=== PATIENT | male | born 1975 | race Caucasian/White ===

== ENCOUNTER 2018-04-21 21:34 | Emergency (ER) | payer OTHER ==
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
[2018-04-21 21:50] VITALS: BP 147/88
[2018-04-21] MEDS ORDERED: IBUPROFEN 100 MG/5 ML ORAL.SUSP. PO ONE (22:15)
[2018-04-21] MEDS ORDERED: IBUPROFEN 400 MG TABLET. PO ONE (22:30)
[2018-04-21] MEDS ORDERED: HYDR-1179 PO (22:47)
--- NOTE | 2018-04-22 08:03 | RAD ---
EXAM: Right elbow, 2 views. HISTORY: Pain and swelling. COMPARISON: None. FINDINGS: 3 views of the right elbow are obtained. There is no fracture, dislocation or subluxation. There is no joint effusion. There is enthesopathy along the olecranon. There is overlying soft tissue swelling. IMPRESSION: Soft tissue swelling overlying the olecranon. The differential includes a hematoma or olecranon bursitis. There is an olecranon enthesophyte. Electronically signed by: Winifred Bryan MD (04/22/2018 7:59 AM) [place] [id number]
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
== END 2018-04-21 23:11 | disposition home or self-care (01) ==
LOC: ER 21:34
DX: S60.221A Contusion of right hand, initial encounter (principal); S50.01XA Contusion of right elbow, initial encounter; S60.410A Abrasion of right index finger, initial encounter; Y08.89XA Assault by other specified means, initial encounter; Y93.89 Activity, other specified; Y92.89 Other specified places as the place of occurrence of the external cause; Y99.8 Other external cause status
CPT/HCPCS: 73080; 73130; 99283